=== PATIENT | female | born 1990 | race African-American/Black ===

== ENCOUNTER 2023-05-05 21:23 | Emergency (ER) | payer OTHER, SELFPAY ==
[2023-05-05 21:47] VITALS: BP 161/96; PULSE 59; RESP 16; TEMP 36.9; O2SAT 97; BMI 46.1
--- NOTE | 2023-05-05 23:05 | PC.NURSE ---
Has a small opening less the 1/2 cm at distil end of old incision lower abd from previous Hyst with no drainage or redness noted.
--- NOTE | 2023-05-05 23:10 | ED.GENADUL1 ---
HPI - General Adult General Chief complaint: Wound/Laceration Stated complaint: OPEN WOUND UNDER BELLY Time Seen by Provider: 05/05/23 22:35 Mode of arrival: walk-in History of Present Illness HPI narrative: She presents here with a chief complaint of needing her left abdominal incisional port checked. She had a hysterectomy. Patient looks well. Wound is healing well. No acute purulent drainage. No tenderness to the area. Wound is healing appropriately. pt is concerned because was not the same colors or skin. Related Data Home Medications Medication Instructions Recorded Confirmed clonidine HCl 0.2 mg tablet mg 05/05/23 ferrous sulfate 325 mg (65 mg mg 05/05/23 iron) tablet (FeroSul) hydroxyzine HCl 25 mg tablet mg 05/05/23 prazosin 1 mg capsule mg 05/05/23 quetiapine 100 mg tablet mg 05/05/23 quetiapine 50 mg tablet mg 05/05/23 Allergies Allergy/AdvReac Type Severity Reaction Status Date / Time No Known Drug Allergies Allergy Verified 05/05/23 21:51 Review of Systems ROS Narrative All Systems are negative except as noted/marked.All systems reviewed and otherwise negative PFSH PFSH Social History Smoking status: Current every day smoker Exam Narrative Exam Narrative: Nurses note and vital signs reviewed and patient is not hypoxic. General: The patient appears well and in no apparent distress. Patient is resting comfortably on cart. Skin: Warm, dry, no pallor noted. There is no rash noted. left abdominal port incision healing well Head: Normocephalic, atraumatic Eye: Normal conjunctiva, no drainage, EOMI. PERRL Ears, Nose, Mouth, and Throat: oral mucosa is moist. Nares patent. Mouth without vesicles. Ear canals patent. Tm's without Erythema Cardiovascular: Regular Rate and Rhythm Musculoskeletal: The patient has no evidence of calf tenderness, no pitting edema, symmetrical pulses noted bilaterally Neurological: A&O x4, normal speech Psychiatric: Cooperative Constitutional Vital Signs, click to edit/add: Last Vital Signs Temp 98.4 F 05/05/23 21:47 Pulse 59 L 05/05/23 21:47 Resp 16 05/05/23 21:47 BP 161/96 H 05/05/23 21:47 Pulse Ox 97 05/05/23 21:47 O2 Del Method Room Air 05/05/23 21:47 Course Vital Signs Vital signs: Vital Signs Temperature 98.4 F 05/05/23 21:47 Pulse Rate 59 L 05/05/23 21:47 Respiratory Rate 16 05/05/23 21:47 Blood Pressure 161/96 H 05/05/23 21:47 Pulse Oximetry 97 05/05/23 21:47 Oxygen Delivery Method Room Air 05/05/23 21:47 Temperature 98.4 F 05/05/23 21:47 Pulse Rate 59 L 05/05/23 21:47 Respiratory Rate 16 05/05/23 21:47 Blood Pressure 161/96 H 05/05/23 21:47 Pulse Oximetry 97 05/05/23 21:47 Oxygen Delivery Method Room Air 05/05/23 21:47 Medical Decision Making MDM Narrative Medical decision making narrative: Patient has a port incision on the left lower abdomen which is healing well no acute drainage or discharge. I explained to patient to keep the area clean and dry covered and clean. Patient wound was cleaned here bacitracin Band-Aid applied. [facility] Discharge Plan Discharge Chief Complaint: Wound/Laceration Clinical Impression: Encounter for wound care Patient Disposition: Home, Self-Care Time of Disposition Decision: 23:10 Condition: Good Mode of Transportation: Other Prescriptions / Home Meds: No Action prazosin 1 mg capsule quetiapine 100 mg tablet clonidine HCl 0.2 mg tablet ferrous sulfate [FeroSul] 325 mg (65 mg iron) tablet hydroxyzine HCl 25 mg tablet quetiapine 50 mg tablet Instructions: Acute Wounds (DC) Stand Alone Forms: Portal Instructions Referrals: Physician,Non-Staff, MD [Primary Care Provider] - 1 week Discharge Date/Time: 05/05/23 23:47
[2023-05-05] MEDS: BACITRACIN OINTMENT 28.4 GM TUBE 1 APPLIC TOPICAL (23:40)
== END 2023-05-05 23:47 | disposition home or self-care (01) ==
PROVIDERS: Emergency Provider Internal Medicine
DX: Z48.816 Encounter for surgical aftercare following surgery on the genitourinary system (principal); Z90.710 Acquired absence of both cervix and uterus; Z79.899 Other long term (current) drug therapy; F17.210 Nicotine dependence, cigarettes, uncomplicated
CPT/HCPCS: 99282